=== PATIENT | female | born 1950 | race Caucasian/White ===

== ENCOUNTER → 2019-03-29 | Outpatient (CLI) | payer MEDICARE, OTHER ==
[~2019-03-29] MED LIST: CLIM.025TP TP; DOCU100 PO; IMIQUIMOD; LISI20 PO; NAPR500ERA PO; OXYACE5T PO; OXYACE7.5T PO; RXOXYACE PO; TRAZ50 PO; VENL75ER PO
[2019-03-30 05:18] LABS: Stool Occult Bld Immuno 1 Negative (NEGATIVE)
== END ==
LOC: LAB EV 10:00
PROVIDERS: Student in an Organized Health Care Education/Training Program
DX: Z12.11 Encounter for screening for malignant neoplasm of colon (principal)
CPT/HCPCS: G0328

== ENCOUNTER → 2019-05-17 | Outpatient (CLI) | payer MEDICARE, OTHER | END | disposition home or self-care (01) | LOC: PLD 08:46 → LAB SHORT 08:46 | DX: D48.5 Neoplasm of uncertain behavior of skin (principal) | CPT/HCPCS: 88305 ==